=== PATIENT | female | born 1990 | race Caucasian/White ===

== ENCOUNTER 2019-05-21 23:41 | Inpatient (IN) | payer OTHER ==
[2019-05-22] MEDS ORDERED: Bupivacaine 0.25% 10 ML SDV ONE
[2019-05-22] MEDS ORDERED: Acetaminophen 325 MG Tab PO PRN (00:19)
[2019-05-22] MEDS ORDERED: Sodium Chloride 0.9% 10 ML Syringe FLUSH PRN (00:19)
[2019-05-22] MEDS ORDERED: Lidocaine 1% 50 ML MDV INJECT ONE (00:19)
[2019-05-22] MEDS ORDERED: Oxytocin/Lactated Ringers 10 UNIT/1,000 ML BAG IV SCH (00:30)
[2019-05-22] MEDS: Lactated Ringers 1,000 ML IV SCH ×3 (05:58→21:08)
[2019-05-22] MEDS: Oxytocin/Lactated Ringers 10 UNIT/1,000 ML BAG IV SCH ×2 (06:03→19:25)
--- NOTE | 2019-05-22 07:03 | PCM.LDHP ---
L&D History of Present Illness - General Date of Service: 05/22/19 Admit Problem/Dx: Patient Status Order with Admit Dx/Problem 05/22/19 00:19 Patient Status [ADT] Routine Admission Diagnosis/Problem Admission Diagnosis/Problem Source of Information: Patient History Limitations: Reports: No Limitations - History of Present Illness Introduction:: 29 year old at 41w here with SROM with meconium stained fluid. Doing ok. Contractions started now after pitocin. PNC with Dr. Trujillo without significant complications. - Related Data Allergies/Adverse Reactions: Allergies Allergy/AdvReac Type Severity Reaction Status Date / Time azithromycin Allergy Severe Hives Verified 05/22/19 01:03 Home Medications: Home Meds Pnv No.95/Ferrous Fum/Folic AC [ Caplet] 1 tab PO DAILY 09/30/18 [ History] Past Medical History - Past Health History Medical/Surgical History: Denies Medical/Surgical History Respiratory History: Reports: Asthma [employer] History: Reports: Neurological History: Reports: None Psychiatric History: Reports: None Hematologic History: Reports: None Immunologic History: Reports: None Oncologic (Cancer) History: Reports: None Dermatologic History: Reports: None - Past Surgical History Head Surgeries/Procedures: Reports: None Musculoskeletal Surgical History: Reports: Other (See Below) Other Musculoskeletal Surgeries/Procedures:: Bilateral knee sx Social & Family History - Family History Family Medical History: Noncontributory - Tobacco Use Smoking Status *Q: Never Smoker Second Hand Smoke Exposure: No - Caffeine Use Caffeine Use: Reports: None - Recreational Drug Use Recreational Drug Use: No H&P Review of Systems - Review of Systems: Review Of Systems: See Below General: Reports: No Symptoms HEENT: Reports: No Symptoms Pulmonary: Reports: No Symptoms Cardiovascular: Reports: No Symptoms Gastrointestinal: Reports: No Symptoms Genitourinary: Reports: No Symptoms Musculoskeletal: Reports: No Symptoms Skin: Reports: No Symptoms Psychiatric: Reports: No Symptoms Neurological: Reports: No Symptoms Hematologic/Lymphatic: Reports: No Symptoms Immunologic: Reports: No Symptoms L&D Exam - Exam Exam: See Below - Vital Signs Vital Signs: Last Vital Signs Temp 36.7 C 05/22/19 00:15 Pulse 91 05/22/19 00:15 Resp 16 05/22/19 00:15 BP 121/87 05/22/19 00:15 Pulse Ox Weight: 90.265 kg - OB Specific Contraction Intensity: Mild to Moderate Movement: Active Heart Tones: Present Heart Rate (FHR) Variability: Moderate (6-25 bmp) Presentation: Vertex - Vargas Score Vargas Score Cervix Position: Midposition Vargas Score Consistency: Soft Vargas Score Effacement: 51-70% Vargas Score Dilation: 1-2 cm Vargas Score 's Station: -2 Vargas Score Total: 7 - Exam General: Alert, Oriented HEENT: PERRLA, Conjunctiva Clear, EACs Clear, EOMI, Hearing Intact, Mucosa Moist & [employer], Nares Patent, Normal Nasal Septum, Posterior Pharynx Clear, TMs Clear Neck: Supple, Trachea Midline Lungs: Clear to Auscultation, Normal Respiratory Effort Cardiovascular: Regular Rate, Regular Rhythm GI/Abdominal Exam: Normal Bowel Sounds, Soft, Non-Tender, No Organomegaly, No Distention, No Abnormal Bruit, No Mass, Pelvis Stable Rectal Exam: Normal Exam, Normal Rectal Tone Back Exam: Normal Inspection, Full Range of Motion Extremities: Normal Inspection, Normal Range of Motion, Non-Tender, No Pedal Edema, Normal Capillary Refill Skin: Warm, Dry, Intact Neurological: Cranial Nerves Intact, Reflexes Equal Bilateral Psychiatric: Alert, Normal Affect, Normal Mood - Patient Data Lab Results Last 24 hrs: Laboratory Results - last 24 hr 05/22/19 Range/Units 00:19 WBC 12.33 H (3.98-10.04) K/mm3 RBC 3.83 L (3.98-5.22) M/mm3 Hgb 11.7 (11.2-15.7) gm/dl Hct 34.6 (34.1-44.9) % MCV 90.3 (79.4-94.8) fl MCH 30.5 (25.6-32.2) pg MCHC 33.8 (32.2-35.5) g/dl RDW Std Deviation 41.1 (36.4-46.3) fL Plt Count 163 L (182-369) K/mm3 MPV 11.4 (9.4-12.3) fl Neut % (Auto) 70.6 (34.0-71.1) % Lymph % (Auto) 18.8 L (19.3-51.7) % [place] % (Auto) 8.1 (4.7-12.5) % Eos % (Auto) 2.1 (0.7-5.8) Baso % (Auto) 0.2 (0.1-1.2) % Neut # (Auto) 8.69 H (1.56-6.13) K/mm3 Lymph # (Auto) 2.32 (1.18-3.74) K/mm3 [place] # (Auto) 1.00 H (0.24-0.36) K/mm3 Eos # (Auto) 0.26 (0.04-0.36) K/mm3 Baso # (Auto) 0.03 (0.01-0.08) K/mm3 Result Diagrams: 05/22/19 00:19 Problem List Initiated/Reviewed/Updated: Yes Orders Last 24hrs: Active Orders 24 hr Category Date Time Status Patient Status [ADT] Routine ADT 05/22/19 00:19 Active Activity as Tolerated [RC] PFP Care 05/22/19 00:19 Active Communication Order [RC] ASDIRECTED Care 05/22/19 00:19 Active Heart Tones [RC] ASDIRECTED Care 05/22/19 00:19 Active Notify Provider [RC] PFP Care 05/22/19 00:19 Active Notify Provider [RC] PRN Care 05/22/19 00:19 Active Peripheral IV Care [RC] . DIRECTED Care 05/22/19 00:19 Active Urinary Catheter Assessment [RC] ASDIRECTED Care 05/22/19 00:19 Active Vital Signs [RC] PER UNIT ROUTINE Care 05/22/19 00:19 Active Regular Diet [DIET] Diet 05/22/19 Breakfast Active RAPID PLASMA REAGIN,RPR [CHEM] Routine Lab 05/22/19 00:19 Received Acetaminophen [Tylenol] Med 05/22/19 00:19 Active 650 mg PO Q4H PRN Lactated Ringers [Ringers, Lactated] 1,000 ml Med 05/22/19 00:30 Active IV ASDIRECTED Oxytocin/Lactated Ringers [Pitocin in LR 10 Units/1,000 Med 05/22/19 00:30 Active ML] 10 unit in 1,000 ml IV .CONTINUOUS Oxytocin/Lactated Ringers [Pitocin in LR 10 Units/1,000 Med 05/22/19 00:30 Active ML] 10 unit in 1,000 ml IV TITRATE Sodium Chloride 0.9% [Saline Flush] Med 05/22/19 00:19 Active 10 ml FLUSH ASDIRECTED PRN Electronic Heart Tones Ext w TOCO [WOMSER] Oth 05/22/19 00:19 Ordered Routine Electronic Heart Tones Internal [WOMSER] Per Unit Oth 05/22/19 00:19 Ordered Routine Peripheral IV Insertion Adult [OM.PC] Routine Oth 05/22/19 00:19 Ordered Resuscitation Status Routine Resus Stat 05/22/19 00:19 Ordered Medication Orders Acetaminophen (Tylenol) 650 mg PO Q4H PRN PRN Reason: Pain (Mild 1-3) and fever Lactated Ringer's (Ringers, Lactated) 1,000 mls @ 100 mls/hr IV ASDIRECTED MIKKI Last Admin: 05/22/19 05:58 Dose: 100 mls/hr Oxytocin/Lactated Ringer's (Pitocin In Lr 10 Units/1,000 Ml) 10 unit in 1,000 mls @ 12 mls/hr IV TITRATE MIKKI; Protocol Last Admin: 05/22/19 06:03 Dose: 2 munits/min, 12 mls/hr Oxytocin/Lactated Ringer's (Pitocin In Lr 10 Units/1,000 Ml) 10 unit in 1,000 mls @ 100 mls/hr IV .CONTINUOUS MIKKI; Protocol Sodium Chloride (Saline Flush) 10 ml FLUSH ASDIRECTED PRN PRN Reason: Keep Vein Open Assessment/Plan Comment:: 29 year old here with meconium SROM. Pitocin augmentation. Doing well.
[2019-05-22] MEDS ORDERED: Ondansetron 4 MG/2 ML SDV IVPUSH PRN (07:56)
[2019-05-22] MEDS ORDERED: fentaNYL 100 MCG/2 ML SDV EPIDUR PRN (07:56)
[2019-05-22] MEDS ORDERED: ePHEDrine 50 MG/ML SDV IVPUSH PRN (07:56)
[2019-05-22] MEDS ORDERED: Phenylephrine 1 MG in Sodium Chloride 0.9% 10 ML IV SCH (08:00)
[2019-05-22] MEDS ORDERED: Bupivacaine/fentaNYL/NS 100 ML Bag EPIDUR SCH (08:00)
--- NOTE | 2019-05-22 08:10 | PCM.PREANE ---
Preanesthetic Assessment - Anesthesia/Transfusion/Family Hx Anesthesia History: Prior Anesthesia Without Reaction Family History of Anesthesia Reaction: No Transfusion History: No Prior Transfusion(s) Intubation History: Unknown - Review of Systems General: No Symptoms Pulmonary: No Symptoms (asthma-last used inhaler first trimester) Cardiovascular: No Symptoms, Dyspnea on Exertion Gastrointestinal: No Symptoms (GERD) Neurological: No Symptoms Other: Reports: None - Physical Assessment NPO Status Date: 05/22/19 NPO Status Time: 08:00 Vital Signs: Last Vital Signs Temp 36.7 C 05/22/19 00:15 Pulse 91 05/22/19 00:15 Resp 16 05/22/19 00:15 BP 121/87 05/22/19 00:15 Pulse Ox Height: 1.73 m Weight: 90.265 kg ASA Class: 2 Mental Status: Alert & Oriented x3 Airway Class: Mallampati = 2 Dentition: Reports: Normal Dentition, Caries Thyro-Mental Finger Breadths: 3 Mouth Opening Finger Breadths: 3 ROM/Head Extension: Full Lungs: Clear to Auscultation, Normal Respiratory Effort Cardiovascular: Regular Rate, Regular Rhythm, No Murmurs - Lab Values: Laboratory Last Values WBC 12.33 K/mm3 (3.98-10.04) H 05/22/19 00:19 RBC 3.83 M/mm3 (3.98-5.22) L 05/22/19 00:19 Hgb 11.7 gm/dl (11.2-15.7) 05/22/19 00:19 Hct 34.6 % (34.1-44.9) 05/22/19 00:19 MCV 90.3 fl (79.4-94.8) 05/22/19 00:19 MCH 30.5 pg (25.6-32.2) 05/22/19 00:19 MCHC 33.8 g/dl (32.2-35.5) 05/22/19 00:19 RDW Std Deviation 41.1 fL (36.4-46.3) 05/22/19 00:19 Plt Count 163 K/mm3 (182-369) L 05/22/19 00:19 MPV 11.4 fl (9.4-12.3) 05/22/19 00:19 Neut % (Auto) 70.6 % (34.0-71.1) 05/22/19 00:19 Lymph % (Auto) 18.8 % (19.3-51.7) L 05/22/19 00:19 [place] % (Auto) 8.1 % (4.7-12.5) 05/22/19 00:19 Eos % (Auto) 2.1 (0.7-5.8) 05/22/19 00:19 Baso % (Auto) 0.2 % (0.1-1.2) 05/22/19 00:19 Neut # (Auto) 8.69 K/mm3 (1.56-6.13) H 05/22/19 00:19 Lymph # (Auto) 2.32 K/mm3 (1.18-3.74) 05/22/19 00:19 [place] # (Auto) 1.00 K/mm3 (0.24-0.36) H 05/22/19 00:19 Eos # (Auto) 0.26 K/mm3 (0.04-0.36) 05/22/19 00:19 Baso # (Auto) 0.03 K/mm3 (0.01-0.08) 05/22/19 00:19 All labs reviewed and noted and within acceptable ranges to proceed with epidural if desired. - Allergies Allergies/Adverse Reactions: Allergies Allergy/AdvReac Type Severity Reaction Status Date / Time azithromycin Allergy Severe Hives Verified 05/22/19 01:03 - Anesthesia Plan Pre-Op Medication Ordered: None - Acknowledgements Anesthesia Type Planned: Spinal, Epidural Pt an Appropriate Candidate for the Planned Anesthesia: Yes Alternatives and Risks of Anesthesia Discussed w Pt/Guardian: Yes Pt/Guardian Understands and Agrees with Anesthesia Plan: Yes PreAnesthesia Questionnaire - Past Health History Medical/Surgical History: Denies Medical/Surgical History Respiratory History: Reports: Asthma [employer] History: Reports: Neurological History: Reports: None Psychiatric History: Reports: None Hematologic History: Reports: None Immunologic History: Reports: None Oncologic (Cancer) History: Reports: None Dermatologic History: Reports: None - Past Surgical History Head Surgeries/Procedures: Reports: None Musculoskeletal Surgical History: Reports: Other (See Below) Other Musculoskeletal Surgeries/Procedures:: Bilateral knee sx - SUBSTANCE USE Smoking Status *Q: Never Smoker Tobacco Use Within Last Twelve Months: No Second Hand Smoke Exposure: No Recreational Drug Use History: No - HOME MEDS Home Medications: Home Meds Pnv No.95/Ferrous Fum/Folic AC [ Caplet] 1 tab PO DAILY 09/30/18 [ History] - CURRENT (IN HOUSE) MEDS Current Meds: Current Medications Acetaminophen (Tylenol) 650 mg PO Q4H PRN PRN Reason: Pain (Mild 1-3) and fever Ephedrine Sulfate (Ephedrine Sulfate) 5 mg IVPUSH ASDIRECTED PRN PRN Reason: Hypotension Fentanyl (Sublimaze) 100 mcg EPIDUR Q3H PRN PRN Reason: Pain Fentanyl/Bupivacaine HCl (Fentanyl/Bupivacaine/Ns 2 Mcg-0.125% 100 Ml) 100 ml EPIDUR ASDIRECTED MIKKI Lactated Ringer's (Ringers, Lactated) 1,000 mls @ 100 mls/hr IV ASDIRECTED MIKKI Last Admin: 05/22/19 05:58 Dose: 100 mls/hr Oxytocin/Lactated Ringer's (Pitocin In Lr 10 Units/1,000 Ml) 10 unit in 1,000 mls @ 12 mls/hr IV TITRATE MIKKI; Protocol Last Admin: 05/22/19 06:03 Dose: 2 munits/min, 12 mls/hr Oxytocin/Lactated Ringer's (Pitocin In Lr 10 Units/1,000 Ml) 10 unit in 1,000 mls @ 100 mls/hr IV .CONTINUOUS MIKKI; Protocol Phenylephrine HCl 1 mg/ Sodium (Chloride) 10.1 mls @ 1 mls/sec IV TITRATE MIKKI; Protocol Ondansetron HCl (Zofran) 4 mg IVPUSH ONETIME PRN PRN Reason: Nausea/Vomiting Sodium Chloride (Saline Flush) 10 ml FLUSH ASDIRECTED PRN PRN Reason: Keep Vein Open Discontinued Medications Lidocaine HCl (Xylocaine 1%) 50 ml INJECT ONETIME ONE Stop: 05/22/19 00:20
--- NOTE | 2019-05-22 14:45 | PCM.PNLD ---
Labor Progress Note - VS & Meds Vital Signs: Last Vital Signs Temp 36.7 C 05/22/19 00:15 Pulse 91 05/22/19 00:15 Resp 16 05/22/19 00:15 BP 121/87 05/22/19 00:15 Pulse Ox Active Medications: Current Medications Acetaminophen (Tylenol) 650 mg PO Q4H PRN PRN Reason: Pain (Mild 1-3) and fever Ephedrine Sulfate (Ephedrine Sulfate) 5 mg IVPUSH ASDIRECTED PRN PRN Reason: Hypotension Fentanyl (Sublimaze) 100 mcg EPIDUR Q3H PRN PRN Reason: Pain Fentanyl/Bupivacaine HCl (Fentanyl/Bupivacaine/Ns 2 Mcg-0.125% 100 Ml) 100 ml EPIDUR ASDIRECTED MIKKI Lactated Ringer's (Ringers, Lactated) 1,000 mls @ 100 mls/hr IV ASDIRECTED MIKKI Last Admin: 05/22/19 12:06 Dose: 100 mls/hr Oxytocin/Lactated Ringer's (Pitocin In Lr 10 Units/1,000 Ml) 10 unit in 1,000 mls @ 12 mls/hr IV TITRATE MIKKI; Protocol Last Titration: 05/22/19 07:45 Dose: 8 munits/min, 48 mls/hr Oxytocin/Lactated Ringer's (Pitocin In Lr 10 Units/1,000 Ml) 10 unit in 1,000 mls @ 100 mls/hr IV .CONTINUOUS MIKKI; Protocol Phenylephrine HCl 1 mg/ Sodium (Chloride) 10.1 mls @ 1 mls/sec IV TITRATE MIKKI; Protocol Ondansetron HCl (Zofran) 4 mg IVPUSH ONETIME PRN PRN Reason: Nausea/Vomiting Sodium Chloride (Saline Flush) 10 ml FLUSH ASDIRECTED PRN PRN Reason: Keep Vein Open Discontinued Medications Lidocaine HCl (Xylocaine 1%) 50 ml INJECT ONETIME ONE Stop: 05/22/19 00:20 - Uterine Contractions Uterine Monitoring Mode: External [place] Contraction Intensity: Moderate Uterine Resting Tone: Soft - Monitoring Monitor Mode: External Ultrasound Heart Rate (FHR) Baseline: 145 Heart Rate (FHR) Variability: Moderate (6-25 bmp) Accelerations: Present, 15x15 Decelerations: Early, Late (isolated) Strip Review: Category II - Labor Progress (Free Text) Labor Progress: Patient checked by nursing staff prior to noon. Similar exam to admission, but just now starting to become more uncomfortable. Reassured patient that status reassuring. Will continue to increase pitocin and work towards . She expressed understanding. No other concerns at this time
--- NOTE | 2019-05-22 16:07 | PCM.PNLD ---
Labor Progress Note - VS & Meds Vital Signs: Last Vital Signs Temp 36.7 C 05/22/19 00:15 Pulse 91 05/22/19 00:15 Resp 16 05/22/19 00:15 BP 121/87 05/22/19 00:15 Pulse Ox Active Medications: Current Medications Acetaminophen (Tylenol) 650 mg PO Q4H PRN PRN Reason: Pain (Mild 1-3) and fever Ephedrine Sulfate (Ephedrine Sulfate) 5 mg IVPUSH ASDIRECTED PRN PRN Reason: Hypotension Fentanyl (Sublimaze) 100 mcg EPIDUR Q3H PRN PRN Reason: Pain Fentanyl/Bupivacaine HCl (Fentanyl/Bupivacaine/Ns 2 Mcg-0.125% 100 Ml) 100 ml EPIDUR ASDIRECTED MIKKI Lactated Ringer's (Ringers, Lactated) 1,000 mls @ 100 mls/hr IV ASDIRECTED MIKKI Last Admin: 05/22/19 12:06 Dose: 100 mls/hr Oxytocin/Lactated Ringer's (Pitocin In Lr 10 Units/1,000 Ml) 10 unit in 1,000 mls @ 12 mls/hr IV TITRATE MIKKI; Protocol Last Titration: 05/22/19 07:45 Dose: 8 munits/min, 48 mls/hr Oxytocin/Lactated Ringer's (Pitocin In Lr 10 Units/1,000 Ml) 10 unit in 1,000 mls @ 100 mls/hr IV .CONTINUOUS MIKKI; Protocol Phenylephrine HCl 1 mg/ Sodium (Chloride) 10.1 mls @ 1 mls/sec IV TITRATE MIKKI; Protocol Ondansetron HCl (Zofran) 4 mg IVPUSH ONETIME PRN PRN Reason: Nausea/Vomiting Sodium Chloride (Saline Flush) 10 ml FLUSH ASDIRECTED PRN PRN Reason: Keep Vein Open Discontinued Medications Lidocaine HCl (Xylocaine 1%) 50 ml INJECT ONETIME ONE Stop: 05/22/19 00:20 - Uterine Contractions Uterine Monitoring Mode: External [place] Contraction Intensity: Moderate to Strong Uterine Resting Tone: Soft - Monitoring Monitor Mode: External Ultrasound Heart Rate (FHR) Baseline: 150 Heart Rate (FHR) Variability: Moderate (6-25 bmp) Accelerations: Present, 15x15 Decelerations: Early, Variable Strip Review: Category II - Vaginal Exam Dilation (cm): 4 Effacement (Percent): 75 Station: -1 Cervical Position: Midposition - Labor Progress (Free Text) Labor Progress: Patient on 18 of pitocin. Now rating contraction pain as a 7. Now having some change. Is about 4 cm dilated and 75% effaced. Will continue per protocol. Continue to reassess as needed.
--- NOTE | 2019-05-22 19:43 | PCM.PNLD ---
Labor Progress Note - VS & Meds Vital Signs: Last Vital Signs Temp 36.7 C 05/22/19 00:15 Pulse 91 05/22/19 00:15 Resp 16 05/22/19 00:15 BP 121/87 05/22/19 00:15 Pulse Ox Active Medications: Current Medications Acetaminophen (Tylenol) 650 mg PO Q4H PRN PRN Reason: Pain (Mild 1-3) and fever Ephedrine Sulfate (Ephedrine Sulfate) 5 mg IVPUSH ASDIRECTED PRN PRN Reason: Hypotension Fentanyl (Sublimaze) 100 mcg EPIDUR Q3H PRN PRN Reason: Pain Fentanyl/Bupivacaine HCl (Fentanyl/Bupivacaine/Ns 2 Mcg-0.125% 100 Ml) 100 ml EPIDUR ASDIRECTED MIKKI Lactated Ringer's (Ringers, Lactated) 1,000 mls @ 100 mls/hr IV ASDIRECTED MIKKI Last Admin: 05/22/19 12:06 Dose: 100 mls/hr Oxytocin/Lactated Ringer's (Pitocin In Lr 10 Units/1,000 Ml) 10 unit in 1,000 mls @ 12 mls/hr IV TITRATE MIKKI; Protocol Last Admin: 05/22/19 19:25 Dose: 18 munits/min, 108 mls/hr Oxytocin/Lactated Ringer's (Pitocin In Lr 10 Units/1,000 Ml) 10 unit in 1,000 mls @ 100 mls/hr IV .CONTINUOUS MIKKI; Protocol Phenylephrine HCl 1 mg/ Sodium (Chloride) 10.1 mls @ 1 mls/sec IV TITRATE MIKKI; Protocol Ondansetron HCl (Zofran) 4 mg IVPUSH ONETIME PRN PRN Reason: Nausea/Vomiting Sodium Chloride (Saline Flush) 10 ml FLUSH ASDIRECTED PRN PRN Reason: Keep Vein Open Discontinued Medications Lidocaine HCl (Xylocaine 1%) 50 ml INJECT ONETIME ONE Stop: 05/22/19 00:20 - Uterine Contractions Uterine Monitoring Mode: External [place] Contraction Intensity: Strong Uterine Resting Tone: Soft - Monitoring Monitor Mode: External Ultrasound Heart Rate (FHR) Baseline: 135 Heart Rate (FHR) Variability: Moderate (6-25 bmp) Accelerations: Present, 10x10 (=/<32 wks) Decelerations: Early Strip Review: Category I - Vaginal Exam Dilation (cm): 5-6 Effacement (Percent): 90 Station: -1 Cervical Position: Midposition - Labor Progress (Free Text) Labor Progress: Doing well. Feeling more uncomfortable. Pitocin same as previous. Has made good change. Continue present management
[2019-05-22] MEDS ORDERED: Nalbuphine 10 MG/ML Syringe IVPUSH PRN (22:01)
[2019-05-23] MEDS ORDERED: Lidocaine 1% 50 ML MDV ONE (03:22)
--- NOTE | 2019-05-23 03:43 | PCM.DEL ---
L & D Note - General Info Date of Service: 05/23/19 - Delivery Note Labor: Augmented by Oxytocin Delivery Outcome: Livebirth Delivery Method: Spontaneous Vaginal Delivery-Single Delivery Mode: Vacuum Extraction Presentation: Left Occiput Anterior (OXANA) Nuchal Cord: None Anesthesia Type: None Amniotic Fluid Description: Meconium Stained Episiotomy Type: None Laceration: 2nd Degree, Perineal Suture type: Vicryl Suture size: 2-0 Placenta: Intact, Spontaneous Cord: 3 Vessels Estimated Blood Loss: 300 Resuscitation Needed: Yes [place]: Bulb Syringe, Stimulated, Warmed, Conrad Used, Warmer Used Delivery Comments (Free Text/Narrative):: Patient found to be complete and began pushing. Patient encouraged to rotate into many different positions including hands/knees to help facilitate descent. After about 2.5 hours or so of pushing patient became exhausted. Sterile vaginal exam complete/complete/+3 station. head in OXANA presentation. Maternal pushing effort was good and the pelvis was felt to be adequate for an instrument assisted delivery. Given exhaustion the decision was made to proceed with vacuum assisted vaginal delivery. The mushroom cup was placed without difficulty with care to avoid the vaginal side martinez. Applied at 0306. Subsequent vacuum assisted vaginal delivery with pushing over 4 contractions. Delivery time 0312. Total pressure applied 550 mm Hg. Total pop offs 0. Suction was removed following delivery of the head. No nuchal cord. The remainder of the delivered without difficulty. The umbilical cord was clamped and cut and the infant was taken to the warmer for assessment. Cord segment obtained for cord gasses. Cord blood collected. Placenta allowed time to separate and expelled intact. Inspection of the perineum following delivery with a 2nd degree tear which was repaired with a 2- 0 vicryl in the typical fashion. Vacuum Extractor Progress Note - Alternative Labor Strategies Considered Alternative Labor Strategies Considered:: Reports: Yes Strategies Considered:: Reports: Contraction Intensity Adequate, Position Changes Used to Facilitate Rotation & Descent, Empty Bladder, Rest Indications Considered:: Reports: Yes Indications:: Reports: Shortening of 2nd Stage for Maternal Benefit Time Out:: Reports: Yes - Patient Prepared Patient Prepared:: Reports: Yes Informed Consent:: Reports: Verbal Risks: Reports: Yes Risks Include:: Reports: Laceration, Shoulder Dystocia, Maternal Injury, Other Comments:: Patient unmedicated - Probability of Success High Probability of Success:: Reports: Yes Weight Estimated:: Reports: AGA Patient Diabetic:: Reports: No Pelvis Adequate:: Reports: Yes Position:: OXANA Asynclitic:: Reports: No Station:: +3 - Application Time Maximum Application Time & Number of Pop-Offs Predetermined:: Reports: Yes Maximum Pressure Maintained in [place] (cm Hg):: 550 Total Application Time (min): *max=20min: 6 Number of Times Cup Disengaged:: 0 Type of Vacuum Used:: Reports: Cup: Mushroom type - Exit Strategy Exit strategy available:: Reports: Yes and resuscitation teams readily available:: Reports: Yes - General Info Date of Service: 05/23/19 - Patient Data Vitals - Most Recent: Last Vital Signs Temp 36.7 C 05/22/19 00:15 Pulse 91 05/22/19 00:15 Resp 16 05/22/19 00:15 BP 121/87 05/22/19 00:15 Pulse Ox Weight - Most Recent: 90.265 kg I&O - Last 24 Hours: Intake & Output 05/22/19 05/22/19 05/23/19 14:59 22:59 06:59 Intake Total 3000 Balance 3000 - Problem List & Annotations (1) 41 weeks gestation of SNOMED Code(s): 74356471 Code(s): Z3A.41 - 41 WEEKS GESTATION OF Status: Acute Current Visit: Yes (2) Meconium stained amniotic fluid, delivered, current hospitalization SNOMED Code(s): 764498401, 282545678 Code(s): O77.0 - LABOR AND DELIVERY COMPLICATED BY MECONIUM IN AMNIOTIC FLUID Status: Acute Current Visit: Yes (3) Vacuum-assisted vaginal delivery SNOMED Code(s): 81773025742455791 Code(s): Z37.9 - OUTCOME OF DELIVERY, UNSPECIFIED Status: Acute Current Visit: Yes - Problem List Review Problem List Initiated/Reviewed/Updated: Yes - My Orders Last 24 Hours: My Active Orders 05/22/19 22:01 Nalbuphine [Nubain] 10 mg IVPUSH Q3H PRN - Assessment Assessment:: PPD#0 - Plan Plan:: * Routine cares * Breast feeding * Discharge home in 1-2 days
[2019-05-23] MEDS: Ibuprofen 600 MG Tab PO PRN ×2 (04:05→21:22)
[2019-05-23] MEDS ORDERED: Acetaminophen 325 MG Tab PO PRN (04:07)
[2019-05-23] MEDS ORDERED: Docusate Sodium 100 MG Cap PO PRN (04:07)
[2019-05-23] MEDS ORDERED: Witch Hazel Medicated Pads 40/Jar TOP PRN (04:07)
[2019-05-23] MEDS ORDERED: Benzocaine/Menthol 20%-0.5% Spray 56 GM Canister TOP PRN (04:07)
--- NOTE | 2019-05-24 07:33 | PCM.PNPP ---
- General Info Date of Service: 05/24/19 Functional Status: Reports: Pain Controlled, Tolerating Diet, Ambulating, Urinating - Review of Systems General: Reports: No Symptoms Pulmonary: Reports: No Symptoms Cardiovascular: Reports: No Symptoms Gastrointestinal: Reports: No Symptoms Genitourinary: Reports: No Symptoms Musculoskeletal: Reports: No Symptoms Neurological: Reports: No Symptoms - General Info Date of Service: 05/24/19 - Patient Data Vital Signs - Most Recent: Last Vital Signs Temp 36.9 C 05/24/19 06:27 Pulse 100 05/24/19 06:27 Resp 14 05/24/19 06:27 BP 104/68 05/24/19 06:27 Pulse Ox 98 05/24/19 06:27 Weight - Most Recent: 90.265 kg I&O - Last 24 Hours: Intake & Output 05/23/19 05/24/19 05/24/19 22:59 06:59 14:59 Intake Total 0 Balance 0 Lab Results - Last 24 Hours: Laboratory Results - last 24 hr 05/23/19 Range/Units 13:20 Blood Type O NEGATIVE Gel Antibody Screen Positive Screen 0 ros/5 flds - neg RhIG Candidate? Yes Rhogam Indicated Yes, baby rh pos H Med Orders - Current: Current Medications Acetaminophen (Tylenol) 650 mg PO Q4H PRN PRN Reason: mild pain or fever Benzocaine/Menthol (Dermoplast Pain Relief [place]) 0 gm TOP ASDIRECTED PRN PRN Reason: Perineal Comfort Measure Docusate Sodium (Colace) 100 mg PO BID PRN PRN Reason: Constipation Ibuprofen (Motrin) 600 mg PO Q6H PRN PRN Reason: Mild pain or fever Last Admin: 05/23/19 21:22 Dose: 600 mg Witch Nguyen (Tucks) 1 pad TOP ASDIRECTED PRN PRN Reason: Perineal Comfort Measure Discontinued Medications Acetaminophen (Tylenol) 650 mg PO Q4H PRN PRN Reason: Pain (Mild 1-3) and fever Bupivacaine HCl (Sensorcaine-Mpf 0.25%) 10 ml .ROUTE .STK-MED ONE Stop: 05/22/19 00:01 Ephedrine Sulfate (Ephedrine Sulfate) 5 mg IVPUSH ASDIRECTED PRN PRN Reason: Hypotension Fentanyl (Sublimaze) 100 mcg EPIDUR Q3H PRN PRN Reason: Pain Fentanyl/Bupivacaine HCl (Fentanyl/Bupivacaine/Ns 2 Mcg-0.125% 100 Ml) 100 ml EPIDUR ASDIRECTED MIKKI Lactated Ringer's (Ringers, Lactated) 1,000 mls @ 100 mls/hr IV ASDIRECTED MIKKI Last Admin: 05/22/19 21:08 Dose: 100 mls/hr Oxytocin/Lactated Ringer's (Pitocin In Lr 10 Units/1,000 Ml) 10 unit in 1,000 mls @ 12 mls/hr IV TITRATE MIKKI; Protocol Last Titration: 05/23/19 03:12 Dose: 500 mls/hr Oxytocin/Lactated Ringer's (Pitocin In Lr 10 Units/1,000 Ml) 10 unit in 1,000 mls @ 100 mls/hr IV .CONTINUOUS MIKKI; Protocol Last Admin: 05/23/19 04:22 Dose: 100 mls/hr Phenylephrine HCl 1 mg/ Sodium (Chloride) 10.1 mls @ 1 mls/sec IV TITRATE MIKKI; Protocol Lidocaine HCl (Xylocaine 1%) 50 ml INJECT ONETIME ONE Stop: 05/22/19 00:20 Lidocaine HCl (Xylocaine 1%) Confirm Administered Dose 50 ml .ROUTE .STK-MED ONE Stop: 05/23/19 03:23 Nalbuphine HCl (Nubain) 10 mg IVPUSH Q3H PRN PRN Reason: Abdominal Pain Last Admin: 05/22/19 22:18 Dose: 10 mg Ondansetron HCl (Zofran) 4 mg IVPUSH ONETIME PRN PRN Reason: Nausea/Vomiting Sodium Chloride (Saline Flush) 10 ml FLUSH ASDIRECTED PRN PRN Reason: Keep Vein Open - Infant Interaction Infant Disposition, : [facility] [place] in Room with Family Infant Interaction: Holding Feeding: Breastfed ; Nursed Well Support Person: - Recovery Exam Fundal Tone: Firm Fundal Level: 1 Fingerbreadths Below Umbilicus Fundal Placement: Midline Lochia Amount: Small Lochia Color: Rubra/Red Perineum Description: Other (see below) Other Perinuem Description: 2nd degree lac w/rep Episiotomy/Laceration: Approximated Bladder Status: Nonpalpable, Voiding Urinary Elimination: Voided - Exam General: Alert, Oriented, Cooperative GI/Abdominal Exam: Soft, Non-Tender Extremities: Normal Inspection Skin: Warm, Dry, Intact - Problem List & Annotations (1) 41 weeks gestation of SNOMED Code(s): 30222900 Code(s): Z3A.41 - 41 WEEKS GESTATION OF Status: Acute Current Visit: Yes (2) Meconium stained amniotic fluid, delivered, current hospitalization SNOMED Code(s): 052125492, 164055393 Code(s): O77.0 - LABOR AND DELIVERY COMPLICATED BY MECONIUM IN AMNIOTIC FLUID Status: Acute Current Visit: Yes (3) Vacuum-assisted vaginal delivery SNOMED Code(s): 11202627222508936 Code(s): Z37.9 - OUTCOME OF DELIVERY, UNSPECIFIED Status: Acute Current Visit: Yes - Problem List Review Problem List Initiated/Reviewed/Updated: Yes - My Orders Last 24 Hours: My Active Orders 05/23/19 Breakfast Regular Diet [DIET] 05/24/19 04:07 Heat Therapy [OM.PC] PRN - Assessment Assessment:: PPD#1 - Plan Plan:: * Routine cares * Breast feeding * Rhogam given, baby Rh positive * Discharge home today vs tomorrow
--- NOTE | 2019-05-24 08:39 | PCM.DCSUM1 ---
Discharge Summary - Discharge Data Discharge Date: 05/24/19 Discharge Disposition: Home, Self-Care 01 Condition: Good - Referral to Home Health Primary Care Physician: Cherise Stearns MD - Discharge Diagnosis/Problem(s) (1) 41 weeks gestation of SNOMED Code(s): 13982483 ICD Code: Z3A.41 - 41 WEEKS GESTATION OF Status: Acute Current Visit: Yes (2) Meconium stained amniotic fluid, delivered, current hospitalization SNOMED Code(s): 968375940, 764659713 ICD Code: O77.0 - LABOR AND DELIVERY COMPLICATED BY MECONIUM IN AMNIOTIC FLUID Status: Acute Current Visit: Yes (3) Vacuum-assisted vaginal delivery SNOMED Code(s): 10710732428163828 ICD Code: Z37.9 - OUTCOME OF DELIVERY, UNSPECIFIED Status: Acute Current Visit: Yes - Patient Summary/Data Complications: None Consults: None Recommended Follow-up Testing/Procedures: Follow up in 3 weeks for check Hospital Course: 29 y/o presented at 41 0/7 wks with SROM. Was augmented with pitocin and able to progress to complete dilation. Began pushing, but after about 2.5 or so hours of pushing became exhausted (patient unmedicated and in hospital greater than 24 hours at that time). Reviewed options and she elected to proceed with VAVD. This was successful. See delivery note. she did well and was discharged home on PPD#1 - Patient Instructions Diet: Regular Diet as Tolerated Activity: As Tolerated Activity, Other: Pelvic rest for 6 weeks Driving: May Drive Today Showering/Bathing: May Shower Showering/Bathing, Other: May Bathe Notify Provider of: Fever, Increased Pain, Swelling and Redness, Drainage, Nausea and/or Vomiting - Discharge Plan *PRESCRIPTION DRUG MONITORING PROGRAM REVIEWED*: Not Applicable *COPY OF PRESCRIPTION DRUG MONITORING REPORT IN PATIENT [place]: Not Applicable Home Medications: Home Meds Pnv No.95/Ferrous Fum/Folic AC [ Caplet] 1 tab PO DAILY 09/30/18 [ History] Docusate Sodium [Colace] 100 mg PO BID PRN cap 05/24/19 [Rx] Ibuprofen [Motrin] 600 mg PO Q6H PRN tablet 05/24/19 [Rx] Patient Handouts: and Inducing , and Self- Care, Care After Vaginal Delivery Referrals: Elle Trujillo MD [Physician] - (3 weeks for check) - Discharge Summary/Plan Comment DC Time >30 min.: No - Patient Data Vitals - Most Recent: Last Vital Signs Temp 36.9 C 05/24/19 06:27 Pulse 100 05/24/19 06:27 Resp 14 05/24/19 06:27 BP 104/68 05/24/19 06:27 Pulse Ox 98 05/24/19 06:27 Weight - Most Recent: 90.265 kg I&O - Last 24 hours: Intake & Output 05/23/19 05/24/19 05/24/19 22:59 06:59 14:59 Intake Total 0 Balance 0 Lab Results - Last 24 hrs: Laboratory Results - last 24 hr 05/23/19 Range/Units 13:20 Blood Type O NEGATIVE Gel Antibody Screen Positive Screen 0 ros/5 flds - neg RhIG Candidate? Yes Rhogam Indicated Yes, baby rh pos H Med Orders - Current: Current Medications Acetaminophen (Tylenol) 650 mg PO Q4H PRN PRN Reason: mild pain or fever Benzocaine/Menthol (Dermoplast Pain Relief [place]) 0 gm TOP ASDIRECTED PRN PRN Reason: Perineal Comfort Measure Docusate Sodium (Colace) 100 mg PO BID PRN PRN Reason: Constipation Ibuprofen (Motrin) 600 mg PO Q6H PRN PRN Reason: Mild pain or fever Last Admin: 05/23/19 21:22 Dose: 600 mg Witch Nguyen (Tucks) 1 pad TOP ASDIRECTED PRN PRN Reason: Perineal Comfort Measure Discontinued Medications Acetaminophen (Tylenol) 650 mg PO Q4H PRN PRN Reason: Pain (Mild 1-3) and fever Bupivacaine HCl (Sensorcaine-Mpf 0.25%) 10 ml .ROUTE .STK-MED ONE Stop: 05/22/19 00:01 Ephedrine Sulfate (Ephedrine Sulfate) 5 mg IVPUSH ASDIRECTED PRN PRN Reason: Hypotension Fentanyl (Sublimaze) 100 mcg EPIDUR Q3H PRN PRN Reason: Pain Fentanyl/Bupivacaine HCl (Fentanyl/Bupivacaine/Ns 2 Mcg-0.125% 100 Ml) 100 ml EPIDUR ASDIRECTED MIKKI Lactated Ringer's (Ringers, Lactated) 1,000 mls @ 100 mls/hr IV ASDIRECTED MIKKI Last Admin: 05/22/19 21:08 Dose: 100 mls/hr Oxytocin/Lactated Ringer's (Pitocin In Lr 10 Units/1,000 Ml) 10 unit in 1,000 mls @ 12 mls/hr IV TITRATE MIKKI; Protocol Last Titration: 05/23/19 03:12 Dose: 500 mls/hr Oxytocin/Lactated Ringer's (Pitocin In Lr 10 Units/1,000 Ml) 10 unit in 1,000 mls @ 100 mls/hr IV .CONTINUOUS MIKKI; Protocol Last Admin: 05/23/19 04:22 Dose: 100 mls/hr Phenylephrine HCl 1 mg/ Sodium (Chloride) 10.1 mls @ 1 mls/sec IV TITRATE MIKKI; Protocol Lidocaine HCl (Xylocaine 1%) 50 ml INJECT ONETIME ONE Stop: 05/22/19 00:20 Lidocaine HCl (Xylocaine 1%) Confirm Administered Dose 50 ml .ROUTE .[facility]-MED ONE Stop: 05/23/19 03:23 Nalbuphine HCl (Nubain) 10 mg IVPUSH Q3H PRN PRN Reason: Abdominal Pain Last Admin: 05/22/19 22:18 Dose: 10 mg Ondansetron HCl (Zofran) 4 mg IVPUSH ONETIME PRN PRN Reason: Nausea/Vomiting Sodium Chloride (Saline Flush) 10 ml FLUSH ASDIRECTED PRN PRN Reason: Keep Vein Open
== END 2019-05-24 15:33 | disposition home or self-care (01) | DRG 807 ==
LOC: JD.OBCHECK 23:41 → JD.OB 23:41 → JD.OBCHECK 05-22 00:18 → JD.OB 05-22 00:19 → OBSVTOIN 05-23 03:12 → JD.MS 05-23 03:13 → JD.OB 05-23 12:07
PROVIDERS: ADMIT Obstetrics & Gynecology; ATTEND Obstetrics & Gynecology
PROC: 10D07Z6 Extraction of Products of Conception, Vacuum, Via Natural or Artificial Opening (ICD-10-PCS; principal; 2019-05-23)
PROC: 0KQM0ZZ Repair Perineum Muscle, Open Approach (ICD-10-PCS; 2019-05-23)
PROC: 3E0R3BZ Introduction of Anesthetic Agent into Spinal Canal, Percutaneous Approach (ICD-10-PCS; 2019-05-23)
DX: O48.0 Post-term pregnancy (principal); Z37.0 Single live birth; O77.0 Labor and delivery complicated by meconium in amniotic fluid; O70.1 Second degree perineal laceration during delivery; Z88.1 Allergy status to other antibiotic agents; Z79.899 Other long term (current) drug therapy; Z3A.41 41 weeks gestation of pregnancy
CPT/HCPCS: 36415; 59025; 59409; 85025; 86592; A9270-GY; J2300; J2590; J2790; J3490; J7120

== ENCOUNTER 2021-05-31 13:05 | Inpatient (IN) | payer OTHER ==
[2021-06-01] MEDS ORDERED: Nalbuphine 10 MG/1 ML Vial IVPUSH PRN (07:01)
[2021-06-01] MEDS ORDERED: Sodium Chloride 0.9% 10 ML Syringe FLUSH PRN (07:01)
[2021-06-01] MEDS ORDERED: Ondansetron 4 MG/2 ML SDV IVPUSH PRN (07:01)
[2021-06-01] MEDS ORDERED: Oxytocin/Lactated Ringers 10 UNIT/1,000 ML BAG IV SCH ×2 (07:15)
[2021-06-01] MEDS ORDERED: Ampicillin 2 GM in Sodium Chloride 0.9% 100 ML IV ONE (07:30)
[2021-06-01] MEDS: Lactated Ringers 1,000 ML IV SCH ×3 (08:10→21:49)
[2021-06-01] MEDS ORDERED: Sodium Chloride 0.9% 10 ML Syringe FLUSH SCH (09:00)
[2021-06-01] MEDS: Ampicillin 1 GM in Sodium Chloride 0.9% 100 ML IV SCH ×3 (12:21→20:05)
[2021-06-01] MEDS ORDERED: Oxytocin/Lactated Ringers 20 UNIT/1,000 ML BAG IV SCH (22:45)
[2021-06-02] MEDS ORDERED: Lidocaine 2% with EPINEPHrine 1:200,000 20 ML SDV ONE
[2021-06-02] MEDS ORDERED: Sodium Bicarbonate 8.4% 50 MEQ/50 ML SDV ONE
[2021-06-02] MEDS ORDERED: Bupivacaine 0.25% 10 ML SDV ONE
[2021-06-02] MEDS: Ampicillin 1 GM in Sodium Chloride 0.9% 100 ML IV SCH ×4 (00:23→18:44)
[2021-06-02] MEDS: Lactated Ringers 1,000 ML IV SCH ×3 (02:36→09:19)
[2021-06-02] MEDS ORDERED: fentaNYL 100 MCG/2 ML SDV EPIDUR PRN (06:30)
[2021-06-02] MEDS ORDERED: ePHEDrine 50 MG/ML SDV IVPUSH PRN (06:30)
[2021-06-02] MEDS ORDERED: diphenhydrAMINE 50 MG/ML SDV IVPUSH PRN ×3 (06:30→12:57)
[2021-06-02] MEDS ORDERED: Bupivacaine/fentaNYL/NS 100 ML Bag EPIDUR PRN (06:30)
[2021-06-02] MEDS ORDERED: fentaNYL 100 MCG/2 ML SDV ONE (06:31)
[2021-06-02] MEDS ORDERED: Bupivacaine/fentaNYL/NS 100 ML Bag ONE (06:32)
[2021-06-02] MEDS ORDERED: ceFAZolin 2 GM in Sodium Chloride 0.9% 50 ML IV ONE (10:56)
[2021-06-02] MEDS ORDERED: Citric Acid/Sodium Citrate Solution 30 ML Cup PO ONE (10:56)
[2021-06-02] MEDS ORDERED: Metoclopramide 10 MG/2 ML SDV IVPUSH ONE (10:56)
[2021-06-02] MEDS ORDERED: ceFAZolin 1 GM Vial ONE (11:12)
[2021-06-02] MEDS ORDERED: Oxytocin 10 Units/1 ML SDV ONE (11:15)
[2021-06-02] MEDS ORDERED: Ondansetron 4 MG/2 ML SDV ONE (11:21)
[2021-06-02] MEDS ORDERED: Methylergonovine 0.2 MG/1 ML Amp ONE (11:27)
[2021-06-02] MEDS ORDERED: Ketorolac 30 MG/ML SDV ONE (11:34)
[2021-06-02] MEDS ORDERED: Morphine PF 10 MG/10 ML SDV ONE (11:35)
[2021-06-02] MEDS ORDERED: Ondansetron 4 MG/2 ML SDV IVPUSH PRN (12:12)
[2021-06-02] MEDS ORDERED: fentaNYL 100 MCG/2 ML SDV IVPUSH PRN (12:12)
[2021-06-02] MEDS ORDERED: Lactated Ringers 2,000 ML ONE (12:31)
[2021-06-02] MEDS ORDERED: Dextrose 5%-Lactated Ringers 1,000 ML IV SCH (12:57)
[2021-06-02] MEDS ORDERED: Acetaminophen/oxyCODONE 325-5 MG Tab PO PRN ×2 (12:57)
[2021-06-02] MEDS ORDERED: Naloxone 0.4 MG/ML SDV IVPUSH PRN (12:57)
[2021-06-02] MEDS ORDERED: Ondansetron 4 MG/2 ML SDV IV PRN (12:57)
[2021-06-02] MEDS: Ketorolac 30 MG/ML SDV IVPUSH SCH (18:05)
[2021-06-03] MEDS: Ketorolac 30 MG/ML SDV IVPUSH SCH ×2 (00:20→05:53)
[2021-06-03] MEDS: Docusate Sodium 100 MG Cap PO PRN (13:38)
[2021-06-03] MEDS: Ibuprofen 600 MG Tab PO PRN (13:38)
[2021-06-04] MEDS: Ibuprofen 600 MG Tab PO PRN ×3 (03:32→20:01)
[2021-06-04] MEDS: Docusate Sodium 100 MG Cap PO PRN (03:32)
[2021-06-05] MEDS: Ibuprofen 600 MG Tab PO PRN (03:14)
== END 2021-06-05 15:30 | disposition home or self-care (01) | DRG 788 ==
LOC: JD.OB 06-01 07:00 → OBSVTOIN 06-02 11:22 → JD.OB 06-02 11:23
PROVIDERS: ADMIT Obstetrics & Gynecology; ATTEND Obstetrics & Gynecology
PROC: 10D00Z1 Extraction of Products of Conception, Low, Open Approach (ICD-10-PCS; principal; 2021-06-02)
PROC: 3E0R3BZ Introduction of Anesthetic Agent into Spinal Canal, Percutaneous Approach (ICD-10-PCS; 2021-06-02)
PROC: 00HU33Z Insertion of Infusion Device into Spinal Canal, Percutaneous Approach (ICD-10-PCS; 2021-06-02)
PROC: 3E0334Z Introduction of Serum, Toxoid and Vaccine into Peripheral Vein, Percutaneous Approach (ICD-10-PCS; 2021-06-02)
PROC: 10H07YZ Insertion of Other Device into Products of Conception, Via Natural or Artificial Opening (ICD-10-PCS; 2021-06-02)
DX: O76 Abnormality in fetal heart rate and rhythm complicating labor and delivery (principal); Z3A.40 40 weeks gestation of pregnancy; Z37.0 Single live birth; O99.824 Streptococcus B carrier state complicating childbirth; Z20.822 Contact with and (suspected) exposure to COVID-19; Z29.13 Encounter for prophylactic Rho(D) immune globulin
CPT/HCPCS: 01967; 01968; 36415; 51702; 59025; 85027; 85461; 86592; 86850; 86870; 86900; 86901; 93005; 94762; 99140; A9270-GY; J0290; J0690; J1885; J2210; J2274; J2405; J2590; J2765; J2790; J3010; J7120; U0002